=== PATIENT | female | born 1990 | race African-American/Black ===

== ENCOUNTER 2024-05-23 21:50 | Inpatient (IN) | payer OTHER ==
[2024-05-23 22:46] VITALS: BMI 27.6
[2024-05-24] MEDS: NALOXONE (NYS OPIOID OVERDOSE PROGRAM) 4 MG/0.1 ML SPRAY NS ONE (01:33)
[2024-05-24] MEDS ORDERED: METHOCARBAMOL 500 MG TABLET PO PRN (01:57)
[2024-05-24] MEDS ORDERED: BENZONATATE 200 MG CAPSULE PO PRN (01:57)
[2024-05-24] MEDS ORDERED: IBUPROFEN 400 MG TABLET (FP) PO PRN (01:57)
[2024-05-24] MEDS ORDERED: ONDANSETRON *ODT* 4 MG TABLET SL PRN (01:57)
[2024-05-24] MEDS ORDERED: NALOXONE (NARCAN) HCL 4 MG/0.1 ML SPRAY NS PRN (01:57)
[2024-05-24] MEDS ORDERED: MAG HYDROX/AL HYDROX/SIMETH 30 ML UNIT-DOSE CUP PO PRN (01:57)
[2024-05-24] MEDS ORDERED: ACETAMINOPHEN 325 MG TABLET (FP) PO PRN (01:57)
[2024-05-24] MEDS ORDERED: guaiFENesin 600 MG TABLET.ER (FP) PO PRN (01:57)
[2024-05-24] MEDS ORDERED: BENZOCAINE/MENTHOL (CHLORASEPTIC ) LOZENGE MM PRN (01:57)
[2024-05-24] MEDS ORDERED: IBUPROFEN 600 MG TABLET (FP) PO PRN (01:57)
[2024-05-24] MEDS ORDERED: hydrOXYzine PAMOATE 25 MG CAPSULE (FP) PO PRN (01:57)
[2024-05-24] MEDS ORDERED: MAGNESIUM HYDROX 2400MG/30ML ORAL SUSPENSION 30 ML CUP PO PRN (01:57)
[2024-05-24] MEDS ORDERED: DICYCLOMINE HCL 10 MG CAPSULE PO PRN (01:57)
[2024-05-24] MEDS ORDERED: BISMUTH SUBSALICYLATE 524 MG/30 ML PO PRN (01:57)
[2024-05-24] MEDS ORDERED: POLYETHYLENE GLYCOL (HEALTHYLAX) 3350 17 GM PACKET PO PRN (01:57)
[2024-05-24] MEDS ORDERED: LOPERAMIDE HCL 2 MG CAPSULE PO PRN (01:57)
[2024-05-24] MEDS: PRENATAL VITAMINS W/ FOLIC ACID TABLET (FP) PO SCH (10:54)
[2024-05-24] MEDS: THIAMINE 100 MG TABLET PO SCH (23:08)
[2024-05-24] MEDS: MELATONIN 5 MG TABLETS PO SCH (23:08)
[2024-05-25 09:29] VITALS: BP 127/74; PULSE 85; RESP 18; TEMP 97.8
[2024-05-25 10:19] LABS: HEMATOCRIT 37.3 % (32.4-45.2); HEMOGLOBIN 12.3 GM/dL (10.7-15.3); MCH 33.1 pg (25.7-33.7); MCHC 33.1 g/dl (32.0-36.0); MEAN CELL VOLUME 99.9 fl (80-96); MEAN PLT VOLUME 7.6 fl (7.5-11.1); PLATELET COUNT 345 10^3/uL (134-434); RBC 3.73 M/mm3 (3.60-5.2); RDW 15.8 % (11.6-15.6); WHITE BLOOD COUNT 6.5 K/mm3 (4.0-10.0)
[2024-05-25 11:27] LABS: POTASSIUM 3.6 mmol/L (3.5-5.1)
[2024-05-25 11:34] LABS: ALBUMIN 2.9 g/dl (3.4-5.0); CALCIUM 8.3 mg/dL (8.5-10.1)
[2024-05-25 11:36] LABS: BILIRUBIN,TOTAL 0.7 mg/dL (0.2-1); TOT PROT 6.7 g/dl (6.4-8.2)
[2024-05-25 11:37] LABS: CREATININE 0.7 mg/dL (0.55-1.3)
== END 2024-05-25 09:56 | disposition home or self-care (01) | DRG 775 ==
LOC: YASAS 21:50 → Y6N 05-24 02:37
PROVIDERS: ADMIT Allergy & Immunology; ATTEND Surgery
PROC: HZ2ZZZZ Detoxification Services for Substance Abuse Treatment (ICD-10-PCS; principal; 2024-05-24)
DX: F10.280 Alcohol dependence with alcohol-induced anxiety disorder (principal); F10.20 Alcohol dependence, uncomplicated; F12.20 Cannabis dependence, uncomplicated; F10.282 Alcohol dependence with alcohol-induced sleep disorder; F41.9 Anxiety disorder, unspecified; Z87.19 Personal history of other diseases of the digestive system; Z87.891 Personal history of nicotine dependence
CPT/HCPCS: 36415; 80053; 80305; 80307; 81025; 85027; 86780; 93005; 93010